=== PATIENT | female | born 1965 | race Caucasian/White ===

== ENCOUNTER 2016-09-23 11:08 | Outpatient (CLI) | END 2016-09-23 11:09 | disposition home or self-care (01) | LOC: AMBL 11:08 | PROVIDERS: ATTEND Emergency Medicine | DX: R51 Headache (principal); M25.512 Pain in left shoulder; S00.91XA Abrasion of unspecified part of head, initial encounter; R00.0 Tachycardia, unspecified; V49.9XXA Car occupant (driver) (passenger) injured in unspecified traffic accident, initial encounter ==

== ENCOUNTER 2017-08-06 10:13 | Day surgery (SDC) ==
[2017-08-06] MEDS ORDERED: ROBINOL ONE (11:45)
[2017-08-06] MEDS ORDERED: NEOSTIGMINE IVP ONE (11:45)
[2017-08-06] MEDS ORDERED: ANECTINE ONE (11:45)
[2017-08-06] MEDS ORDERED: NEOSTIGMINE METHYLSULFATE ONE (11:45)
[2017-08-06] MEDS ORDERED: ZEMURON ONE (11:45)
[2017-08-06] MEDS ORDERED: SUBLIMAZE ONE (11:45)
[2017-08-06] MEDS ORDERED: DIPRIVAN 20 ML VIAL IVP ONE (11:45)
[2017-08-06] MEDS ORDERED: DECADRON 4 MG/ML SDV ONE (11:45)
[2017-08-06] MEDS ORDERED: ROBINOL IVP ONE (11:45)
[2017-08-06] MEDS ORDERED: NEOSPORIN OINT 0.9 GM PACKET TP ONE (12:07)
[2017-08-06] MEDS ORDERED: LIDOCAINE 1%-EPI 1:100,000 10 ML (SURGERY) INJ ONE (12:08)
[2017-08-06] MEDS ORDERED: GELFOAM SIZE 50 TP ONE (12:08)
[2017-08-06] MEDS ORDERED: DEMEROL 25 MG/ML SYRINGE IV ONE (12:50)
[2017-08-06 13:50] VITALS: BP 136/95; TEMP 97
--- NOTE | 2017-08-08 14:02 | OP ---
PREOPERATIVE DIAGNOSIS: DEVIATED SEPTUM, HYPERTROPHIC INFERIOR TURBINATES. POSTOPERATIVE DIAGNOSIS: DEVIATED SEPTUM, HYPERTROPHIC INFERIOR TURBINATES. OPERATION: SEPTOPLASTY AND PARTIAL RESECTION OF INFERIOR TURBINATES. DESCRIPTION OF PROCEDURE: The patient was taken to surgery, placed on the table and general anesthesia was administered. 1% Xylocaine/100,000 Epinephrine was injected in a classic septorhinoplasty technique. A left hemitransfixion incision was made and dissection was carried down to the mucoperiosteum. The mucous membrane was dissected free from the Quadrangular cartilage and then an incision was made to dissect the Quadrangular cartilage from perpendicular plate of the ethmoid and vomer. Double action rongeurs were then used to remove part of this bone. Dissection was carried along the crest and the spine and then chisel was used to remove some of the frankie spine and cartilage. This allowed for the quadrangular cartilage to be swung back to the midline position. Incision sight was then closed using 4-0 Chromic suture. Through and through suture 4-0 Chromic was placed through the quadrangular cartilage. Each inferior turbinate was then partly cauterized and resected and a [employer] knife blade was then used to fracture the quadrangular cartilage laterally on both sides. A medium sized rhino rocket was placed on both sides of the nose and then the mouth and oropharynx was irrigated copiously with saline and and was extubated and returned to the recovery room in satisfactory condition. ESTEBAN
== END 2017-08-06 14:02 | disposition home or self-care (01) ==
LOC: SURG 10:13
PROVIDERS: ATTEND Otolaryngology
DX: J34.2 Deviated nasal septum (principal); J34.3 Hypertrophy of nasal turbinates

== ENCOUNTER 2017-08-24 04:47 | Outpatient (CLI) | END 2017-08-24 04:48 | disposition short-term general hospital (02) | LOC: AMBL 04:47 | PROVIDERS: ATTEND Internal Medicine Geriatric Medicine | DX: S89.91XA Unspecified injury of right lower leg, initial encounter (principal); W19.XXXA Unspecified fall, initial encounter ==

== ENCOUNTER 2018-09-29 11:22 | Outpatient (CLI) | END 2018-09-29 11:23 | disposition home or self-care (01) | LOC: RHC-LAB 11:22 | PROVIDERS: ATTEND Nurse Practitioner Family | DX: E78.5 Hyperlipidemia, unspecified (principal); E11.9 Type 2 diabetes mellitus without complications; I10 Essential (primary) hypertension; F33.1 Major depressive disorder, recurrent, moderate | CPT/HCPCS: 36415; 80053; 80061; 83036; 84443; 85025 ==